=== PATIENT | female | born 1970 | race Caucasian/White ===

== ENCOUNTER → 2021-06-29 | Outpatient (CLI) | payer BC ==
[2021-06-29 14:04] VITALS: BP 166/82; PULSE 60; TEMP 98; BMI 31.4
--- NOTE | 2021-06-29 16:31 | P.BASOAP ---
Subjective Progress Note Date: 06/29/21 Principal diagnosis: Morbid obesity Patient presents with complaints of worsening nighttime reflux. Patient has a lap band placed initially in July 2010. Has had some gradual weight gain. Overall lost approximately 100 pounds or more. Occasionally have dysphagia to solid foods. Objective - Vital Signs Vital signs: Vital Signs Temp 98 F 06/29/21 14:00 Pulse 60 06/29/21 14:00 Resp BP 166/82 06/29/21 14:00 Pulse Ox Intake & Output 06/28/21 06/29/21 06/29/21 18:59 06:59 18:59 Weight 96.615 kg - Exam Physical exam: General: Well-developed, well-nourished HEENT: Normocephalic, sclerae nonicteric Abdomen: Nontender, nondistended Extremities: No edema Neuro: Alert and oriented Assessment/Plan (1) Morbid obesity Narrative/Plan: Patient's band sounds to tight at this time. Options reviewed. Will empty band. Patient will follow-up in 1-2 months and will have esophagram performed at that time. The patient's lap band port was palpated. The site was aseptically prepped. The Capone needle was advanced into the port. A total of 5 ml of fluid was removed. Band is now empty. Pressure was held and a sterile dressing was applied. Plan: Date: 06/29/21 Initial Weight: Initial BMI: Current Weight: 96.615 kg Current BMI: 31.4 Type of Surgery: Total Volume in Band: Previous Volume: Volume Removed: Volume Added: Band Size:
== END ==
LOC: BARWHC3 13:39
PROVIDERS: ATTEND Surgery
DX: Z46.51 Encounter for fitting and adjustment of gastric lap band (principal); E66.01 Morbid (severe) obesity due to excess calories; K21.9 Gastro-esophageal reflux disease without esophagitis; Z68.31 Body mass index [BMI] 31.0-31.9, adult; Z88.2 Allergy status to sulfonamides
CPT/HCPCS: 99212

== ENCOUNTER → 2022-06-21 | Outpatient (CLI) | payer BC ==
[2022-06-21 14:22] VITALS: BP 160/93; PULSE 76; RESP 16; TEMP 99.2; BMI 43.4
--- NOTE | 2022-06-21 14:39 | P.BASOAP ---
Subjective Progress Note Date: 06/21/22 Principal diagnosis: Morbid obesity Patient returns after being seen last year for symptoms of dysphagia. Patient had her band emptied at the time. This led to resolution of her dysphagia symptoms. She did not have her follow-up upper GI. She is doing well at this time. No pain. No heartburn. Would like a band adjustment. She has gained a significant amount of weight since last year. Objective - Vital Signs Vital signs: Vital Signs Temp 99.2 F 06/21/22 14:08 Pulse 76 06/21/22 14:08 Resp 16 06/21/22 14:08 BP 160/93 06/21/22 14:08 Pulse Ox FiO2 Intake & Output 06/20/22 06/21/22 06/21/22 18:59 06:59 18:59 Weight 133.356 kg - Exam Abdomen: Soft, nontender, nondistended Assessment/Plan (1) Morbid obesity Narrative/Plan: 51-year-old female with morbid obesity. Patient's band was emptied last visit. We will add 2 mL of fluid at this time. Check upper GI prior to any further refills. The patient's lap band port was palpated. The site was aseptically prepped. The Capone needle was advanced into the port. A total of 2ml of fluid was added for a total of 2 mL.. Pressure was held and a sterile dressing was applied. Plan: Date: 06/21/22 Initial Weight: 140.614 kg Initial BMI: 45.8 Current Weight: 133.356 kg Current BMI: 43.4 Type of Surgery: Total Volume in Band: Previous Volume: Volume Removed: Volume Added: Band Size:
== END ==
LOC: BARWHC3 13:56
PROVIDERS: ATTEND Surgery
DX: E66.01 Morbid (severe) obesity due to excess calories (principal); Z68.41 Body mass index [BMI] 40.0-44.9, adult; Z88.2 Allergy status to sulfonamides
CPT/HCPCS: 99211

== ENCOUNTER → 2022-08-09 | Outpatient (CLI) | payer BC ==
[2022-08-09 13:31] VITALS: BP 142/86; PULSE 85; RESP 16; TEMP 98.5; BMI 42.8
--- NOTE | 2022-08-09 14:14 | P.BASOAP ---
Subjective Progress Note Date: 08/09/22 Principal diagnosis: Morbid obesity Patient returns for LAP-BAND adjustment. When she was seen last visit she had 2 mL added. The visit prior to that she had 5 mL removed when the band was too tight. She had an upper GI today. This was read as normal. There is no signs of prolapse or obstruction. On review of the images the contrast does almost appeared to go around the left lateral aspect of the band raising the suspicion for gastric erosion. Patient has no pain. Only minimal reflux symptoms at times. Objective - Vital Signs Vital signs: Vital Signs Temp 98.5 F 08/09/22 13:27 Pulse 85 08/09/22 13:27 Resp 16 08/09/22 13:27 BP 142/86 08/09/22 13:27 Pulse Ox FiO2 Intake & Output 08/08/22 08/09/22 08/09/22 18:59 06:59 18:59 Weight 131.542 kg - Exam Abdomen: Soft, nontender, nondistended Assessment/Plan (1) Morbid obesity Narrative/Plan: Options discussed with the patient. She would like to have more fluid added to the band. We'll add 2 mL at this time. Recommend we proceed with upper endoscopy to evaluate the gastric mucosa and eliminate the possibility of gastric erosion. She is agreeable. The patient's lap band port was palpated. The site was aseptically prepped. The Capone needle was advanced into the port. A total of 2 ml of fluid was added for a total of 4 mL. Pressure was held and a sterile dressing was applied. Plan: Date: 08/09/22 Initial Weight: 140.614 kg Initial BMI: 45.8 Current Weight: 131.542 kg Current BMI: 42.8 Type of Surgery: Total Volume in Band: 2 Previous Volume: Volume Removed: Volume Added: Band Size:
== END ==
LOC: BARWHC3 13:09
PROVIDERS: ATTEND Surgery
DX: E66.01 Morbid (severe) obesity due to excess calories (principal); Z46.51 Encounter for fitting and adjustment of gastric lap band; Z68.41 Body mass index [BMI] 40.0-44.9, adult
CPT/HCPCS: 99212

== ENCOUNTER → 2022-08-09 | Outpatient (CLI) | payer BC ==
--- NOTE | 2022-08-09 13:19 | FL ---
EXAMINATION TYPE: FL barium swallow DATE OF EXAM: 08/09/2022 LAP BANDING LIMITED ESOPHAGRAM: CLINICAL HISTORY: Dysphagia TECHNIQUE: Limited esophagram is performed utilizing 2-3 oz of barium. COMPARISON: None. 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 The patient then drank oral contrast. There is good flow of c ontrast along the course of the esophagus. There is good flow of contrast along the course of the la p band, there is no evidence of contrast extravasation to suggest leak. There is no significant pastor teddy prolapse appreciated. IMPRESSION: No evidence of prolapse or significant obstruction.
== END | disposition home or self-care (01) ==
LOC: RADUSWWP 12:42
PROVIDERS: ATTEND Surgery
DX: R13.10 Dysphagia, unspecified (principal)
CPT/HCPCS: 74220

== ENCOUNTER 2022-08-30 10:51 | Day surgery (SDC) | payer BC ==
[2022-08-26 15:38] VITALS: BMI 41.3
[~2022-08-30 10:51] MED LIST: LACTATED RINGERS 1,000 ML IV SCH; LIDOCAINE 1% (10MG/ML) FOR IV START INTRADERMA PRN
[2022-08-30 11:33] VITALS: TEMP 97.8
[2022-08-30] MEDS ORDERED: LACTATED RINGERS 1,000 ML IV ONE (11:35)
[2022-08-30] MEDS ORDERED: PROPOFOL 10 MG/ML 20 ML VIAL IV ONE (12:23)
[2022-08-30] MEDS ORDERED: LIDOCAINE 2% INJ 20 MG/ML (2 ML VIAL) ONE (12:23)
--- NOTE | 2022-08-30 12:36 | P.PCN ---
Date of Procedure: 08/30/22 Procedure(s) Performed: Preoperative Dx: GERD Postoperative Dx: Mild gastritis, mild distal esophagitis Procedure: EGD with Bx Anesthesia: Sedation Endoscopist: Dr. Sanchez Specimens: Antrum, distal esophagus Endoscopic Procedure: The patient was on the endoscopy table in the left decubitus position. The Olympus gastroscope was inserted into the oropharynx and passed under direct visualization to the region of the third portion of the duodenum. From that point the scope was slowly withdrawn inspecting all surfaces carefully. There were no neoplastic inflammatory or polypoid lesions throughout the duodenum. The pylorus was widely patent. The stomach was carefully inspected. There was mild gastritis present. A biopsy of the antrum took place to rule out H. pylori. Retroflexion revealed a normal band plication. No signs of erosion or prolapse was seen. At the GE junction there was minimal inflammation and a biopsy was taken. The remainder the esophagus appear normal. The patient was then taken to the recovery room in stable condition per anesthesia guidelines. Recommendations: Patient states she is doing well after her recent band adjustment. Good restriction. Keep band at 4 mL. No evidence of erosion.
[2022-08-30 12:52] VITALS: BP 136/86; PULSE 61; RESP 12
== END 2022-08-30 13:16 | disposition home or self-care (01) ==
LOC: ORWHC2ENDO 10:51
PROVIDERS: ATTEND Surgery
DX: K29.40 Chronic atrophic gastritis without bleeding (principal); K21.00 Gastro-esophageal reflux disease with esophagitis, without bleeding; I10 Essential (primary) hypertension; G47.33 Obstructive sleep apnea (adult) (pediatric); E07.9 Disorder of thyroid, unspecified; E66.01 Morbid (severe) obesity due to excess calories; Z88.2 Allergy status to sulfonamides
CPT/HCPCS: 88305; 43239; J2704; J2001

== ENCOUNTER → 2024-10-29 | Outpatient (CLI) | payer BC ==
[2024-10-29 13:15] VITALS: BP 141/71; PULSE 71; RESP 16; TEMP 98.7; BMI 44.1
--- NOTE | 2024-10-29 14:21 | P.BASOAP ---
Subjective Progress Note Date: 10/29/24 Principal diagnosis: Morbid obesity Patient here today requesting a Lap-Band adjustment. Patient has gained 9 pounds since her last visit. Currently at 4 cc. Was too tight at 5 cc 2 years ago. No nausea or vomiting. No GERD. Objective - Vital Signs Vital signs: Vital Signs Temp 98.7 F 10/29/24 13:12 Pulse 71 10/29/24 13:12 Resp 16 10/29/24 13:12 BP 141/71 10/29/24 13:12 Pulse Ox FiO2 Intake & Output 10/28/24 10/29/24 10/29/24 18:59 06:59 18:59 Weight 135.624 kg - Exam Abdomen: Soft, nontender, nondistended Assessment/Plan (1) Morbid obesity Narrative/Plan: Patient doing well at this time. Wants more fluid added. Will add 0.5 for a total of 4.5 cc. The patient's lap band port was palpated. The site was aseptically prepped. The Capone needle was advanced into the port. A total of 0.5 ml of fluid was added. Pressure was held and a sterile dressing was applied. Plan: Date: 10/29/24 Initial Weight: 140.614 kg Initial BMI: 45.8 Current Weight: 135.624 kg Current BMI: 44.1 Type of Surgery: Adjustable Gastric Banding Total Volume in Band: 4 Previous Volume: Volume Removed: Volume Added: Band Size:
== END ==
LOC: BARWHC3 12:28
PROVIDERS: ATTEND Surgery
DX: Z46.51 Encounter for fitting and adjustment of gastric lap band (principal); E66.01 Morbid (severe) obesity due to excess calories; Z68.41 Body mass index [BMI] 40.0-44.9, adult; Z88.2 Allergy status to sulfonamides
CPT/HCPCS: 43999